=== PATIENT | female | born 2000 | race Two or more races ===

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

== ENCOUNTER 2023-11-10 06:47 | Emergency (ER) | payer BC ==
[~2023-11-10] VITALS: Ht 154.9 cm; Wt 64.4 kg
[2023-11-10 07:16] VITALS: TEMP 98.7
[2023-11-10] MEDS ORDERED: predniSONE 20 MG TABLET ONE ×2 (07:24→07:28)
[2023-11-10] MEDS ORDERED: ALBUTEROL FS 2.5 MG/3 ML VIAL.NEB ONE (07:32)
[2023-11-10] MEDS: predniSONE 20 MG TABLET PO ONE (07:32)
[2023-11-10] MEDS ORDERED: IPRATROPIUM NEB FS 0.5 MG/2.5 ML AMPUL.NEB ONE (07:32)
[2023-11-10 07:34] VITALS: O2SAT 99
[2023-11-10] MEDS: IPRATROPIUM NEB FS 0.5 MG/2.5 ML AMPUL.NEB NEB ONE (07:34)
[2023-11-10] MEDS: ALBUTEROL FS 2.5 MG/3 ML VIAL.NEB CONTNEB ONE (07:34)
[2023-11-10 07:44] LABS: BASOPHILS # (AUTO) 0.1 K/uL (0.0-0.2); EOSINOPHILS # (AUTO) 0.1 K/uL (0.0-0.7); EOSINOPHILS % (AUTO) 1.3 % (0.0-6.0); HEMATOCRIT 41 % (33-45); HEMOGLOBIN 14.1 g/dL (11.5-14.8); LYMPHOCYTES # (AUTO) 3.9 K/uL (0.8-4.8); LYMPHOCYTES % (AUTO) 42.3 % (20.0-44.0); MEAN CORPUSCULAR HEMOGLOBIN 32 PG (26.0-33.0); MEAN CORPUSCULAR HGB CONC 34 g/dl (31.0-36.0); MEAN CORPUSCULAR VOLUME 92 fL (82-100); MONOCYTES # (AUTO) 0.6 K/uL (0.1-1.30); MONOCYTES % (AUTO) 6.7 % (2.0-12.0); NEUTROPHILS # (AUTO) 4.5 K/uL (1.8-8.9); NEUTROPHILS % (AUTO) 48.7 % (43.0-81.0); PLATELET COUNT (AUTO) 242 K/uL (150-450); RED BLOOD CELL COUNT(AUTO) 4.47 MIL/uL (4.0-5.2); RED CELL DISTRIBUTION WIDTH 12.8 % (11.5-15.0); WHITE BLOOD COUNT (AUTO) 9.2 K/uL (4.3-11.0)
[2023-11-10 07:48] VITALS: O2SAT 99
[2023-11-10 07:57] LABS: CALCIUM, SERUM 8.6 mg/dL (8.5-10.1); CREATININE 0.8 mg/dL (0.6-1.3); POTASSIUM 3.5 mmol/L (3.5-5.1)
[2023-11-10] MEDS ORDERED: ALBU8.5H8 INH (09:29)
[2023-11-10] MEDS ORDERED: PRED50TA PO (09:29)
[2023-11-10] MEDS ORDERED: AZIT250T PO (09:29)
[2023-11-10 11:02] VITALS: BP 111/75; O2SAT 99
== END 2023-11-10 11:00 | disposition home or self-care (01) ==
LOC: ER 06:51
DX: J40 Bronchitis, not specified as acute or chronic (principal); Z20.822 Contact with and (suspected) exposure to COVID-19
CPT/HCPCS: 99285; 71045; 87426; 87804 ×2; 85025; 80048; 36415; 94640; 94799; J7512 ×2

== ENCOUNTER 2023-12-10 18:02 | Emergency (ER) | payer BC, MEDICAID ==
[~2023-12-10] VITALS: Ht 154.9 cm; Wt 65.8 kg
[~2023-12-10 18:02] MED LIST changes: +ALBU8.5H8 INH; +AZIT250T PO; +PRED50TA PO
--- NOTE | 2023-12-10 19:00 | NUR ---
ANAL PAIN AND CONSTIPATION X 2 DAYS, LAST BM 10 MINUTES TRAFFIC CHIEF, PLACED TO BED AND HOOKED INTO A MONITOR.
[2023-12-10] MEDS ORDERED: DOCU-141 PO (21:16)
[2023-12-10] MEDS ORDERED: POLY17PO4 PO (21:16)
[2023-12-10] MEDS ORDERED: LIDO28CR2 TP (21:16)
[2023-12-10 21:27] VITALS: BP 108/67; TEMP 98.6; O2SAT 98
--- NOTE | 2023-12-10 21:27 | NUR ---
Patient discharged to home in stable condition. Written and verbal after care instructions given. Patient verbalizes understanding of instruction.
== END 2023-12-10 21:28 | disposition home or self-care (01) ==
LOC: ER 18:02
DX: K60.2 Anal fissure, unspecified (principal); K59.00 Constipation, unspecified